=== PATIENT | female | born 2000 | race African-American/Black ===

== ENCOUNTER 2021-09-10 19:23 | Emergency (ER) | payer OTHER ==
[~2021-09-10] VITALS: Ht 160 cm; Wt 62.6 kg
[2021-09-10 20:19] LABS: BASOPHILS % (AUTO) 0.4 % (0.0-5.0); EOSINOPHILS % (AUTO) 0.6 % (0.0-8.0); LYMPHOCYTES % (AUTO) 42.8 % (21.0-51.0); MEAN CORPUSCULAR HEMOGLOBIN 30.2 pg (27.0-33.0); MEAN CORPUSCULAR HGB CONC 32.9 g/dL (32.0-36.0); MEAN CORPUSCULAR VOLUME 91.6 fL (80-100); MONOCYTES % (AUTO) 7.2 % (3.0-13.0); NEUTROPHILS % (AUTO) 48.8 % (40.0-77.0); PLATELET COUNT (AUTO) 193 K/uL (130-400); RED BLOOD CELL COUNT(AUTO) 3.71 MIL/uL (4.00-5.50); RED CELL DISTRIBUTION WIDTH 12.5 % (11.0-15.5); WHITE BLOOD COUNT (AUTO) 5.3 K/uL (4.8-10.8)
[2021-09-10 20:31] LABS: APPEARANCE,URINE Clear (CLEAR); BILIRUBIN,URINE Negative (NEGATIVE); COLOR,URINE Yellow (YELLOW); GLUCOSE, URINE (UA) Negative (NEGATIVE); KETONES,URINE Trace mg/dL (NEGATIVE); LEUKOCYTE ESTERASE ,URINE Trace (NEGATIVE); NITRATE,URINE Negative (NEGATIVE); OCCULT BLOOD,URINE Negative (NEGATIVE); PH,URINE 7.5 (5.0-8.0); PROTEIN,URINE POS 1+ mg/dL (NEGATIVE)
[2021-09-10 20:35] LABS: HCG,QUAL RESULT NEGATIVE (NEGATIVE)
[2021-09-10 20:38] LABS: CREATININE 0.9 mg/dL (0.5-1.5); POTASSIUM 3.5 mmol/L (3.5-5.1)
[2021-09-10 20:42] LABS: ALBUMIN 3.6 g/dL (3.5-5.0); BILIRUBIN,TOTAL 0.1 mg/dL (0.2-1.0)
[2021-09-10 20:48] LABS: BACTERIA,URINE Few /HPF (None Seen); MUCUS,URINE Moderate LPF (None Seen); SQUAMOUS EPITHELIAL CELL,UR Few /HPF (0-2)
[2021-09-10] MEDS ORDERED: METR-172 PO (21:21)
[2021-09-10] MEDS ORDERED: METRONIDAZOLE 500 MG TABLET PO ONE (21:30)
[2021-09-10] MEDS ORDERED: AZITHROMYCIN 250 MG TABLET PO ONE (21:30)
[2021-09-10] MEDS ORDERED: CEFTRIAXONE 500MG VIAL IM SCH (21:30)
[2021-09-10 21:37] VITALS: BP 117/84
== END 2021-09-10 21:46 | disposition home or self-care (01) ==
LOC: EDH 19:23
DX: N76.0 Acute vaginitis (principal); B96.89 Other specified bacterial agents as the cause of diseases classified elsewhere
CPT/HCPCS: 36415; 80053; 81001; 81025; 85025; 87210; 87486; 87797; 96372; 99283; J0696

== ENCOUNTER 2022-05-27 12:17 | Emergency (ER) | payer OTHER ==
[~2022-05-27] VITALS: Ht 160 cm; Wt 62.1 kg
[~2022-05-27 12:17] MED LIST: METR-172 PO
[2022-05-27 16:22] VITALS: BP 118/66
[2022-05-27] MEDS ORDERED: METH-662 PO (16:31)
== END 2022-05-27 16:46 | disposition home or self-care (01) ==
LOC: EDH 12:17
DX: S16.1XXA Strain of muscle, fascia and tendon at neck level, initial encounter (principal); V89.2XXA Person injured in unspecified motor-vehicle accident, traffic, initial encounter; Y93.89 Activity, other specified; Y92.89 Other specified places as the place of occurrence of the external cause; Y99.8 Other external cause status
CPT/HCPCS: 72040; 81025